=== PATIENT | female | born 1985 ===

== ENCOUNTER 2023-03-06 10:33 | Outpatient (AMB) | payer BC, SELFPAY ==
--- NOTE | 2023-03-06 10:37 | MHC.OFFVIS ---
Intake Vital Signs 03/06/23 10:39 Height 5 ft 3 in Weight 177 lb BMI 31.4 BP 125/69 Blood Pressure Location Lt brachial Position Sitting Respiration 12 Pulse 82 Pulse Source Pulse Oximeter Pulse Oximetry (%) 97 Oxygen Delivery Method Room Air Intake Visit Reasons: Migraine/confirmed Allergies No Known Allergies Allergy (Verified 03/06/23 10:40) Medication List - Last Reconciled 03/06/23 by Iman Hollis LPN bupropion HCl (Wellbutrin XL) 150 mg PO QAM fluoxetine 30 mg PO DAILY magnesium 250 mg PO DAILY multivitamin 1 tab PO DAILY sumatriptan succinate take 1 tab at onset of headache; if no relief may repeat 1 tab after at least 2 hrs; max = 4 tabs/24 hr PO vitamin B complex (B Complex-Vitamin B12 tablet) 1 tab PO DAILY HPI Migraine/confirmed HPI Details 38-year-old female who presents today to the office for an evaluation of migraine. She has a history of chronic headaches and migraines associated with neck and shoulder pain. She has had this problem for about 20 years. She describes pain around her orbits. She rates her pain at 8/10 in intensity, as well as pain in her neck and shoulders, which is rated at 6/10 in intensity. She has chronic daily headaches more than 15 days a month. The pain interferes with her sleep and daily activities. 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 Whether changes and movements make it worse. The pain is usually worse in the evening, when it is 8/10 in intensity, and relatively better in the mornings, when it is 1/10 in intensity. The pain is described as a pulsing, throbbing sensation around the eyes and the occiput. She takes fluoxetine, sumatriptan PRN, and Wellbutrin. She avoids taking sumatriptan in the morning as it makes her feel groggy. She tried Topamax and duloxetine in the past with no relief. No significant medical history. She reports pain and tightness in her neck and shoulder regions. She thinks it might be related to her headaches. She had breast reduction surgery in April of last year, which also helped her neck and shoulder pain. She has previously exhausted physical therapy, chiropractic manipulation, massage therapy, acupuncture, and homeopathic treatments. [facility] Medical History (Updated 03/17/23 @ 11:15 by Sha Bell MD) Iron deficiency anemia Migraine Major depressive disorder Review of Systems Const All systems reviewed & are unremarkable except as noted in HPI and below Physical Exam Vital Signs: Last Vital Signs Pulse 82 03/06/23 10:39 Resp 12 03/06/23 10:39 BP 125/69 03/06/23 10:39 Pulse Ox 97 03/06/23 10:39 Oxygen Delivery Method Room Air 03/06/23 10:39 BMI result Body Mass Index 31.4 General: Appears afebrile. Alert and oriented. Mood and affect appropriate. Follows and participates in conversation appropriately. Respiratory effort is unlabored. Able to transition from sit to stand unassisted. Ambulates with bilaterally normal heel strike and toe off. Office Procedures Injection Trigger Point Multi Pre-procedure diagnosis: Myofascial pain Post-procedure diagnosis: Myofascial pain Site and number of trigger points: Occipitalis, bilateral Trapezius, bilateral Rhomboid, bilateral Solution: Total volume administered 10 ml (5 ml lidocaine 1% + 5 ml bupivacaine 0.25%). The procedure, its benefits, and its risks were explained to the patient and all questions were answered. Prior to the start of the procedure, a ?time out? was performed to confirm correct patient, procedure, and laterality. Trigger points were identified by manual palpation and marked. The skin was cleaned with Chloraprep. A 1.5 inch 25 G needle was used. Each of the trigger points were approximated and elevated in the direction away from the body. Dry needling then took place for five seconds. Approximately 0.5 ml to 1 ml of injectate was delivered to the trigger point followed by dry needling for five seconds. This process was repeated at each trigger point site. The patient tolerated the procedure well. The patient tolerated the procedure well, without complication. The patient denied any numbness, paresthesias, or weakness. Post-procedure vitals were recorded as part of the nursing discharge note in electronic medical record. Following a period of observation, the patient was discharged in stable condition with written discharge instructions. Trigger Point Multiple: 46574- Trigger point injection =/>3 Results Reviewed Results Reviewed: No imaging is available for review. Assessment & Plan Assessment & Plan (1) Myofascial pain syndrome, cervical: Code(s): M79.18 - Myalgia, other site (2) Migraine: Code(s): G43.909 - Migraine, unspecified, not intractable, without status migrainosus Qualifiers: Migraine type: chronic migraine (15 or more days per month) with aura Plan Discussed starting with Botox injections for her chronic migraine/headaches. Informed the patient that insurance approval is required. We will file a PA for approval and keep her updated. Discussed the risks and benefits of the procedure with the patient in detail. All questions were answered. The patient is on board with the plan. Justification for interventional therapy: ? Patient with average pain > 6/10 ? Patient has exhausted conservative therapy Patient is status post trigger point injections. Patient tolerated procedure well and was discharged home in stable condition with discharge instructions. All questions were answered. We will follow-up in two weeks via telephone or in clinic to assess response to therapy. A follow-up appointment was made during today's visit. Scribed for Dr. Bell by Carlos Flaherty, certified court/medical interpreter, on 03/06/2023. I, Dr. Bell, have personally reviewed and agree with the information entered by the scribe. Coding Level of Care Code New Pt Level 4 (34125) Diagnoses Myofascial pain syndrome, cervical M79.18 Migraine G43.909 Migraine type: chronic migraine (15 or more days per month) with aura CPT Codes Details - Trigger Point Multiple: 56872- Trigger point injection =/>3 ([id number])
[2023-03-06 10:39] VITALS: BP 125/69; PULSE 82; RESP 12; O2SAT 97; BMI 31.4
== END 2023-03-06 11:31 | disposition home or self-care (01) ==
PROVIDERS: PCP Nurse Practitioner; Referring Provider Nurse Practitioner; Visit Provider Internal Medicine
DX: G43.909 Migraine, unspecified, not intractable, without status migrainosus (principal); M79.18 Myalgia, other site
CPT/HCPCS: 20553; 99204

== ENCOUNTER → 2023-03-06 10:33 | Outpatient (BNVA) | payer BC, SELFPAY | PROVIDERS: PCP Nurse Practitioner; Referring Provider Nurse Practitioner; Visit Provider Internal Medicine | DX: M79.18 Myalgia, other site (principal); G43.909 Migraine, unspecified, not intractable, without status migrainosus | CPT/HCPCS: 20553; J0665 ==

== ENCOUNTER 2023-06-03 08:42 | Outpatient (AMB) | payer BC, SELFPAY ==
--- NOTE | 2023-06-03 09:05 | A.OFFVIS_ITS ---
Vital Signs 06/03/23 09:06 Height 5 ft 3 in Weight 177 lb BMI 31.4 BP 122/69 Blood Pressure Location Lt brachial Position Sitting Respiration 14 Pulse 57 Pulse Source Pulse Oximeter Pulse Oximetry (%) 98 Oxygen Delivery Method Room Air Intake Visit Reasons: TPI Allergies No Known Allergies Allergy (Verified 06/03/23 09:12) Medication List - Last Reconciled 06/03/23 by Iman Hollis LPN bupropion HCl XL (Wellbutrin XL) 150 mg PO QAM fluoxetine 30 mg PO DAILY magnesium 250 mg PO DAILY multivitamin 1 tab PO DAILY sumatriptan succinate take 1 tab at onset of headache; if no relief may repeat 1 tab after at least 2 hrs; max = 4 tabs/24 hr PO vitamin B complex (B Complex-Vitamin B12 tablet) 1 tab PO DAILY HPI HPI TPI: Details: 38-year-old female presenting for follow-up regarding myofascial pain as well as migraines. She reports about 4 weeks of relief of her upper back and shoulder pain symptoms following the last round of trigger point injections; she would like that to be repeated. Unfortunately our request for prior authorization for trial of Botox for her migraines was denied. Patient reports headaches at least 3-4 x week, lasting 24-36 hours, so 12-16 headaches monthly that last 4 hours or longer. Exhausted anticonvulsants: Topiramate; trialed antidepressants: Duloxetine, fluoxetine, Wellbutrin; currently taking sumatriptan p.r.n. [facility] Medical History (Updated 03/17/23 @ 11:15 by Sha Bell MD) Iron deficiency anemia Migraine Major depressive disorder Physical Exam Vital Signs: Last Vital Signs Pulse 57 06/03/23 09:06 Resp 14 06/03/23 09:06 BP 122/69 06/03/23 09:06 Pulse Ox 98 06/03/23 09:06 Oxygen Delivery Method Room Air 06/03/23 09:06 BMI result Body Mass Index 31.4 On exam today: Appears afebrile. Alert and oriented. Mood and affect appropriate. Follows and participates in conversation appropriately. Respiratory effort is unlabored. Able to transition from sit to stand unassisted. Ambulates with bilaterally normal heel strike and toe off. Able to stand and walk on toes and heels. Office Procedures Injection Trigger Point Multi Pre-procedure diagnosis: Myofascial pain Post-procedure diagnosis: Myofascial pain Site and number of trigger points: Occipitalis, bilateral Trapezius, bilateral Rhomboid, bilateral Solution: Total volume administered 18 ml (lidocaine 1% + ropivacaine 0.25% equal mix). The procedure, its benefits, and its risks were explained to the patient and all questions were answered. Prior to the start of the procedure, a ?time out? was performed to confirm correct patient, procedure, and laterality. Trigger points were identified by manual palpation and marked. The skin was cleaned with Chloraprep. A 1.5 inch 25 G needle was used. Each of the trigger points were approximated and elevated in the direction away from the body. Dry needling then took place for five seconds. Approximately 0.5 ml to 1 ml of injectate was delivered to the trigger point followed by dry needling for five seconds. This process was repeated at each trigger point site. The patient tolerated the procedure well. The patient tolerated the procedure well, without complication. The patient denied any numbness, paresthesias, or weakness. Post-procedure vitals were recorded as part of the nursing discharge note in electronic medical record. Following a period of observation, the patient was discharged in stable condition with written discharge instructions. Trigger Point Multiple: [id number]- Trigger point injection =/>3 Assessment & Plan Assessment & Plan (1) Myofascial pain syndrome, cervical: Code(s): M79.18 - Myalgia, other site Category: Medical (2) Migraine: Code(s): G43.909 - Migraine, unspecified, not intractable, without status migrainosus Category: Medical Qualifiers: Migraine type: chronic migraine (15 or more days per month) with aura Plan Patient is status post repeat trigger point injections to the head and neck region for myofascial pain syndrome. Patient tolerated procedure well and was discharged home in stable condition with discharge instructions. All questions were answered. We will resubmit prior authorization request for Botox for migraine given frequency and length of headaches that meets and exceeds medical necessity requirements. She has also trialed and failed anticonvulsants and antidepressants treatments and is therefore a suitable candidate for trial of Botox therapy. Patient is in agreement with the plan. Coding Level of Care Code Est Pt Level 4 (02241) Diagnoses Myofascial pain syndrome, cervical M79.18 Migraine G43.909 Migraine type: chronic migraine (15 or more days per month) with aura CPT Codes Details - Trigger Point Multiple: 20715- Trigger point injection =/>3 ([id number])
[2023-06-03 09:06] VITALS: BP 122/69; PULSE 57; RESP 14; O2SAT 98; BMI 31.4
== END 2023-06-03 09:27 | disposition home or self-care (01) ==
PROVIDERS: PCP Nurse Practitioner; Visit Provider Internal Medicine
DX: M79.18 Myalgia, other site (principal); G43.909 Migraine, unspecified, not intractable, without status migrainosus
CPT/HCPCS: 20553; 99214

== ENCOUNTER → 2023-06-03 08:42 | Outpatient (BNVA) | payer BC, SELFPAY | PROVIDERS: PCP Nurse Practitioner; Visit Provider Internal Medicine | DX: M79.18 Myalgia, other site (principal); G43.709 Chronic migraine without aura, not intractable, without status migrainosus | CPT/HCPCS: 20553; J2795 ==